=== PATIENT | female | born 1970 | race American Indian/Alaskan Native ===

== ENCOUNTER 2018-01-03 20:21 | Emergency (ER) | payer SELFPAY ==
[2018-01-03 20:30] VITALS: BP 170/83
[2018-01-03 23:16] LABS: HCG Qualitative,Urine Negative (Negative)
[2018-01-03 23:23] LABS: Bilirubin,Urine NEG (Negative); Blood,Urine NEG (Negative); Color,Urine Yellow (Yellow); Protein,Urine <15 mg/dL mg/dL (Negative); Urobilinogen,Urine < 2.0 mg/dL (<2.0)
[2018-01-04] MEDS ORDERED: TORADOL IM ONE (02:03)
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
== END 2018-01-04 03:10 | disposition home or self-care (01) ==
LOC: ED 20:21
DX: G89.29 Other chronic pain (principal); M54.42 Lumbago with sciatica, left side; M54.41 Lumbago with sciatica, right side; F17.200 Nicotine dependence, unspecified, uncomplicated
CPT/HCPCS: 81001; 81025; 96372; 99283; J1885